=== PATIENT | female | born 1975 | race Caucasian/White ===

== ENCOUNTER 2018-07-05 11:59 | Outpatient (REF) | payer BC, SELFPAY ==
[2018-07-05 13:26] LABS: HCT 44.4 % (36.0-46.0); HGB 14.8 g/dL (12.0-15.5); Mean Corp. HGB Concentration 33.3 g/dL (32.0-36.0); Mean Corpuscular Hemoglobin 30.8 pg (27.0-33.0); Mean Corpuscular Volume 92.3 fL (80-95); Mean Platelet Volume 10.7 fL (8.0-11.0); Platelet Count 262 x1000/uL (130-400); RBC 4.81 m/cumm (4.00-5.20); RBC Distribution Width 13.5 % (11.7-14.6); White Blood Cell Count 7.46 k/cumm (4.4-10.8)
[2018-07-05 15:21] LABS: ALT 23 U/L (12-78); Anion Gap 9.4 mmol/L (3-11); BUN 12 mg/dL (7-18); CO2 27.6 mmol/L (21.0-32.0); CREATININE 0.74 mg/dL (0.55-1.02); Calcium 8.8 mg/dL (8.5-10.1); Chloride 106 mmol/L (98-107); Cholesterol 186 mg/dL (50-200); Glucose 91 mg/dL (70-100); HDL Cholesterol 37 mg/dL (40-60); LDL CHOLESTEROL 117 mg/dL (<100); Potassium 4.3 mmol/L (3.5-5.1); Sodium 143 mmol/L (136-145); TSH (W/Ref FT4) 1.43 uIU/mL (0.358-3.74); Triglyceride 182 mg/dL (30-150)
== END 2018-07-05 12:19 ==
LOC: NCHCN 11:59
PROVIDERS: PCP Family Medicine; Visit Provider Family Medicine
DX: I10 Essential (primary) hypertension (principal); E78.5 Hyperlipidemia, unspecified; E66.9 Obesity, unspecified
CPT/HCPCS: 80048; 80061; 83721; 85027; 84443; 84460

== ENCOUNTER 2019-07-11 12:23 | Outpatient (REF) | payer BC, SELFPAY ==
[2019-07-11 19:42] LABS: Anion Gap 13.5 mmol/L (3-11); BUN 22 mg/dL (7-18); CO2 26.5 mmol/L (21.0-32.0); CREATININE 1.04 mg/dL (0.55-1.02); Calcium 9.3 mg/dL (8.5-10.1); Chloride 101 mmol/L (98-107); Glucose 119 mg/dL (70-100); Potassium 3.5 mmol/L (3.5-5.1); Sodium 141 mmol/L (136-145)
== END 2019-07-11 12:43 ==
LOC: NCHCN 12:23
PROVIDERS: PCP Family Medicine; Visit Provider Family Medicine
DX: I10 Essential (primary) hypertension (principal)
CPT/HCPCS: 80048

== ENCOUNTER 2021-08-05 13:27 | Outpatient (REF) | payer BC, SELFPAY ==
[2021-08-05 14:51] LABS: Hemoglobin A1C 5.3 % (<5.7)
[2021-08-05 14:52] LABS: Anion Gap 10.2 mmol/L (3-11); BUN 18 mg/dL (7-18); CO2 30.8 mmol/L (21.0-32.0); CREATININE 0.9 mg/dL (0.55-1.02); Calcium 9.3 mg/dL (8.5-10.1); Chloride 101 mmol/L (98-107); Glucose 110 mg/dL (74-106); Potassium 3.3 mmol/L (3.5-5.1); Sodium 142 mmol/L (136-145)
[2021-08-06 10:56] LABS: Hepatitis C Ab w Rflx HCV PCR Negative (Negative)
[2021-08-06 11:14] LABS: HIV-1/2 Ag & Ab Screen Negative (Negative)
== END 2021-08-05 13:28 | disposition home or self-care (01) ==
LOC: LBN 13:27
PROVIDERS: PCP Family Medicine; Visit Provider Family Medicine
DX: I10 Essential (primary) hypertension (principal); E78.5 Hyperlipidemia, unspecified; E66.9 Obesity, unspecified; Z00.00 Encounter for general adult medical examination without abnormal findings
CPT/HCPCS: 80048; 86803; 87389; 83036

== ENCOUNTER 2024-02-15 16:52 | Outpatient (REF) | payer BC, SELFPAY ==
--- NOTE | 2024-02-15 15:15 | PAPFT_PTH ---
PATIENT: Tasneem Callahan LOC: [facility] U#:[id number] AGE/SX: 48/F ROOM: RE02/15/[address]: Naima Nelson : 1975 BED: DIS: 02/15/2024 SPEC #: [id number] RECD: 02/16/24 13:00 STATUS: MARISOL GILLETTE #: [id number] SHANTI: 02/15/24 15:[address]: Naima Nelson DEPT: [facility] Cytology RECD BY: Kelli Vázquez Tissues: 1 - CX/ENDOCX FOR PAP SMEARS Procedures: PAP THIN PREP/[facility] Screening HPV DNA PROBE Comments: [id number]
[2024-02-15 20:07] LABS: Hemoglobin A1C 5.6 % (<5.7)
[2024-02-15 20:16] LABS: ALT 37 U/L (14-59); AST 22 U/L (15-37); Albumin 3.7 g/dL (3.4-5.0); Alkaline Phosphatase 96 U/L (46-116); Anion Gap 9.4 mmol/L (3-11); BUN 13 mg/dL (7-18); Bilirubin, Total 0.6 mg/dL (0.2-1.0); CO2 31.6 mmol/L (21.0-32.0); Calcium 9.6 mg/dL (8.5-10.1); Calculated LDL 105 mg/dL (<100); Chloride 100 mmol/L (98-107); Cholesterol 188 mg/dL (<200); Estimated GFR 69.06 (mL/min/1.73m2); Glucose 92 mg/dL (74-106); HDL Cholesterol 42 mg/dL (40-60); Potassium 3.1 mmol/L (3.5-5.1); Sodium 141 mmol/L (136-145); TSH (W/Ref FT4) 2.18 uIU/mL (0.36-3.74); Total Protein 7.3 g/dL (6.4-8.2); Triglyceride 208 mg/dL (<150)
== END 2024-02-15 16:53 | disposition home or self-care (01) ==
LOC: NCHCN 16:52
PROVIDERS: PCP Family Medicine; Visit Provider Family Medicine
DX: Z13.6 Encounter for screening for cardiovascular disorders (principal); Z13.1 Encounter for screening for diabetes mellitus; I10 Essential (primary) hypertension; R63.5 Abnormal weight gain
CPT/HCPCS: 80053; 80061; 88142; 83036; 84443; 87624